=== PATIENT | male | born 1995 | race Caucasian/White ===

== ENCOUNTER 2020-07-23 10:22 | Emergency (ER) | payer BC ==
--- NOTE | 2020-07-23 10:37 | ER Document Report ---
ED Medical Screen (RME) - General Stated Complaint: ANXIETY Time Seen by Provider: 07/23/20 10:28 - HPI Notes: 07/23/20 10:35 24-year-old male to the emergency department with complaints of chest pain, shortness of breath bilateral arm numbness and tingling that began this morning as he was starting to drive home. He states that he does have a history of anxiety and has had panic attacks in the past. However, has not had a panic attack in over 6 months. He is not exactly sure if this is what his panic attack is. States he takes Lexapro 10 mg every night. He did not miss his dose last night. He denies any extra stressors that he can pinpoint. He states that it started when he and his girlfriend started to drive this morning and got a little bit worse. They pulled over and calm down a little bit but then as they were driving closer to [place] the symptoms got more more intense. He does vape but does not smoke cigarettes. No family history of heart disease. He denies any SI, HI, hallucinations. He does not use any drugs. On brief medical screening exam, patient is anxious in triage. Lungs are clear to auscultation. No tenderness to palpation to the chest wall. I performed a brief medical screening exam on the patient determined that the patient needs further evaluation and management by main side provider. I have placed initial orders to help expedite care. Physical Exam - Vital signs Vitals: Temp Pulse Resp BP Pulse Ox 97.8 F 86 18 182/89 H 99 07/23/20 10:07/23/20 10:07/23/20 10:07/23/20 10:07/23/20 10:28 Course - Vital Signs Vital signs: Temp Pulse Resp BP Pulse Ox 97.8 F 86 18 182/89 H 99 07/23/20 10:07/23/20 10:28 07/23/20 10:28 07/23/20 10:07/23/20 10:28
--- NOTE | 2020-07-23 11:02 | RADIOLOGY REPORT (SQ) ---
EXAM DESCRIPTION: CHEST 2 VIEWS IMAGES COMPLETED DATE/TIME: 07/23/2020 10:55 am REASON FOR STUDY: chest pain, SOB COMPARISON: None. EXAM PARAMETERS: NUMBER OF VIEWS: two views TECHNIQUE: Digital Frontal and Lateral radiographic views of the chest acquired. RADIATION DOSE: NA LIMITATIONS: none FINDINGS: LUNGS AND PLEURA: No opacities, masses or pneumothorax. No pleural effusion. MEDIASTINUM AND HILAR STRUCTURES: No masses or contour abnormalities. HEART AND VASCULAR STRUCTURES: Heart normal size. No evidence for failure. BONES: No acute findings. HARDWARE: None in the chest. OTHER: No other significant finding. IMPRESSION: NO ACUTE RADIOGRAPHIC FINDING IN THE CHEST. TECHNICAL DOCUMENTATION: JOB ID: [id number] 2010 [employer]- All Rights Reserved Reading location - IP/workstation name: [email or web address]
[2020-07-23 11:13] LABS: ABSOLUTE EOSINOPHILS # (AUTO) 0.1 10^3/uL (0.0-0.6); ABSOLUTE LYMPHOCYTES (AUTO) 1.7 10^3/uL (0.5-4.7); ABSOLUTE MONOCYTES (AUTO) 0.6 10^3/uL (0.1-1.4); ABSOLUTE NEUT (AUTO) 5.2 10^3/uL (1.7-8.2); BASOPHILS % (AUTO) 0.3 % (0-2); EOSINOPHILS % (AUTO) 1.3 % (0-6); HEMATOCRIT 45.7 % (37.9-51.0); HEMOGLOBIN 16.1 g/dL (13.5-17.0); LYMPHOCYTES % (AUTO) 21.9 % (13-45); MEAN CORPUSCULAR HEMOGLOBIN 30.8 pg (27.0-33.4); MEAN CORPUSCULAR HGB CONC 35.2 g/dL (32.0-36.0); MEAN CORPUSCULAR VOLUME 88 fl (80-97); MONOCYTES % (AUTO) 7.8 % (3-13); PLATELET COUNT 153 10^3/uL (150-450); RED BLOOD COUNT 5.21 10^6/uL (4.35-5.55); SEGMENTED NEUTROPHILS % (AUTO) 68.7 % (42-78); TOTAL CELLS COUNTED % (AUTO) 100 %; WHITE BLOOD COUNT 7.6 10^3/uL (4.0-10.5)
[2020-07-23 11:25] LABS: APPEARANCE,URINE CLEAR; BILIRUBIN,URINE NEGATIVE (NEGATIVE); COLOR,URINE STRAW; GLUCOSE, URINE NEGATIVE (NEGATIVE); KETONES,URINE NEGATIVE (NEGATIVE); PROTEIN,URINE NEGATIVE (NEGATIVE); URINE SPECIFIC GRAVITY 1.004; UROBILINOGEN,URINE NEGATIVE mg/dL (<2.0)
[2020-07-23 11:33] LABS: ALKALINE PHOSPHATASE 79 U/L (38-126); ANION GAP 13 (5-19); ASPARTATE AMINO TRANSFERASE 23 U/L (17-59); BILIRUBIN,DIRECT 0.1 mg/dL (0.0-0.4); BILIRUBIN,TOTAL 0.5 mg/dL (0.2-1.3); BLOOD UREA NITROGEN 12 mg/dL (7-20); CARBON DIOXIDE 25 mmol/L (22-30); CHLORIDE 104 mmol/L (98-107); GLUCOSE 101 mg/dL (75-110); TOTAL PROTEIN 8.1 g/dL (6.3-8.2)
[2020-07-23 11:43] LABS: URINE AMPHETAMINES SCREEN NEGATIVE; URINE BARBITURATES SCREEN NEGATIVE; URINE BENZODIAZEPINES SCREEN NEGATIVE; URINE COCAINE SCREEN NEGATIVE; URINE MARIJUANA (THC) SCREEN NEGATIVE; URINE METHADONE SCREEN NEGATIVE; URINE PHENCYCLIDINE SCREEN NEGATIVE
--- NOTE | 2020-07-23 13:08 | ER Document Report ---
ED General - General Chief Complaint: Anxiety Stated Complaint: ANXIETY Time Seen by Provider: 07/23/20 10:28 - HPI Notes: Chief complaint: Hospital panic attack History of present illness: 24-year-old male with history of panic attacks on several psychotropic medications developed what he perceives to be a recurrent panic attack while driving today. He says this was relatively severe and so he had a long drive ahead of him and felt he should come to the emergency department to be checked for other medical problems before continuing with his drive. Patient lives in [facility]. He had been here in [facility] visiting with a friend who is an active duty [employer] who had recently returned from overseas deployment. Patient states he was driving and suddenly began to feel short of breath and breathe rapidly. He had [id number] sensation in his face and his arms and tightness in his chest felt that he might lose consciousness although he did not ever do so. This lasted for about 20 minutes and had spontaneously resolved by the time of his arrival here. Patient denies abuse of drugs or alcohol. He denies any auditory visual hallucinations. He denies any suicidal/homicidal ideation. - Related Data Home Medications: lexapro, pepcid, cephaloxin Past Medical History - General Information source: Patient, Friend - Social History Smoking Status: Current Every Day Smoker Frequency of alcohol use: Social Drug Abuse: None Occupation: field mechanic/site lead Family History: Reviewed & Not Pertinent Psychiatric Medical History: Reports: Hx Depression Review of Systems - Review of Systems Notes: Constitutional: Negative for fever. HENT: Negative for sore throat. Eyes: Negative for visual changes. Cardiovascular: As per HPI. Respiratory: As per HPI. Gastrointestinal: Negative for abdominal pain, vomiting or diarrhea. Genitourinary: Negative for dysuria. Musculoskeletal: Negative for back pain. Skin: Negative for rash. Neurological: Negative for headaches, focal weakness or numbness. 10 point ROS negative except as marked above and in HPI. Physical Exam - Vital signs Vitals: Temp Pulse Resp BP Pulse Ox 97.8 F 86 18 182/89 H 99 07/23/20 10:28 07/23/20 10:28 07/23/20 10:28 07/23/20 10:28 07/23/20 10:28 - Notes Notes: GENERAL: Male patient of approximately stated age appearing in no acute distre ss. SKIN: Good turgor no rashes. HEAD: Normocephalic atraumatic. EYES: PERRLA. EOMI. Conjunctivae and sclerae clear. EARS: CANALS AND TMS CLEAR. NOSE: CLEAR. MOUTH: Moist mucosa. Good dentition. No stridor or edema. No drooling. NECK: Supple. No masses or thyromegaly. No adenopathy. Carotids 2+ without bruits. No JVD. BACK: Symmetrical without tenderness. CHEST: Respirations unlabored. Breath sounds clear and symmetrical. HEART: Regular rhythm. No murmur gallop or rub. ABDOMEN: Soft nontender without masses, organomegaly or rebound. Bowel sounds normally active. No bruits. GENITALIA: Deferred. EXTREMITIES: No edema. No calf tenderness. Cap refill less than 1.5 seconds. Dorsalis pedis and posterior tibial pulses 3+ and symmetrical. NEUROLOGICAL: GCS 15. Alert and oriented x3. Normal gait. Fluent speech. Cranial nerves II through XII intact. Sensorimotor and cerebellar normal. Normal tone. PSYCHIATRIC: Appropriate affect. Course - Re-evaluation Re-evalutation: 07/23/20 13:08 Clinical findings most consistent with a panic attack which is now resolved. Patient is reassured and advised stay on present medications and follow-up with his primary care physician. Findings, clinical impression and plan of treatment have been discussed with patient/family. Understanding of current findings and recommendations has been acknowledged by them and there is agreement regarding disposition and follow-up. - Vital Signs Vital signs: Temp Pulse Resp BP Pulse Ox 97.8 F 86 18 182/89 H 99 07/23/20 10:28 07/23/20 10:28 07/23/20 10:28 07/23/20 10:28 07/23/20 10:28 - Laboratory Result Diagrams: 07/23/20 10:40 07/23/20 10:40 - Diagnostic Test Radiology reviewed: Reports reviewed - Normal chest x-ray per radiologist. - EKG Interpretation by Me Additional EKG results interpreted by me: 07/23/20 13:07 Twelve-lead EKG reviewed by me contemporaneously: 1143 hrs. Indication for study: Chest tightness Rhythm: Normal sinus Rate: 80 Intervals: Normal QRS axis: +[address]/T wave changes: None Comparison with prior tracing: None Interpretation: Normal tracing Discharge - Discharge Clinical Impression: Panic attack Condition: Stable Disposition: HOME, SELF-CARE Additional Instructions: Remain on current medications. Follow-up with your primary care physician within the next 2 to 3 days. Seek medical attention as necessary for new or worsening symptoms.
[2020-07-23 13:16] VITALS: BP 148/82
--- NOTE | 2020-07-23 19:46 | EKG REPORT ---
SEVERITY:- NORMAL ECG - SINUS RHYTHM : Confirmed by: Berny Chawla MD 23-Jul-2020 19:45:37
== END 2020-07-23 13:17 | disposition home or self-care (01) ==
LOC: ER 10:22
DX: F41.0 Panic disorder [episodic paroxysmal anxiety] (principal); R07.89 Other chest pain; F32.9 Major depressive disorder, single episode, unspecified; Z79.899 Other long term (current) drug therapy
CPT/HCPCS: 36415; 71046; 80053; 80307; 81001; 84484; 85025; 93005; 93010; 99285